=== PATIENT | female | born 1965 | race Caucasian/White ===

== ENCOUNTER 2017-07-11 02:06 | Emergency (ER) | payer OTHER ==
[~2017-07-11 02:06] MED LIST: EMTRICITABINE/TENOFOVIR 200MG/300MG TAB PO SCH; RALTEGRAVIR 400 MG TAB PO SCH
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
[2017-07-11 02:52] VITALS: BP 132/74; PULSE 76; RESP 16; TEMP 98.1; O2SAT 97
[2017-07-11] MEDS ORDERED: CEFTRIAXONE IM 350 MG/ML SYRINGE IM ONE (03:12)
[2017-07-11] MEDS ORDERED: IBUPROFEN 600 MG TAB PO ONE (03:12)
[2017-07-11] MEDS ORDERED: RALTEGRAVIR 400 MG TAB PO ONE (03:56)
[2017-07-11] MEDS ORDERED: EMTRICITABINE/TENOFOVIR 200MG/300MG TAB PO ONE (03:56)
[2017-07-11] MEDS ORDERED: ONDANSETRON DISINTEGRATING 4 MG TAB PO ONE (04:01)
[2017-07-11] MEDS ORDERED: AZITHROMYCIN 250 MG TAB PO ONE (04:27)
== END 2017-07-11 05:10 | disposition home or self-care (01) ==
LOC: EEVIPCON 02:06
DX: T74.21XA Adult sexual abuse, confirmed, initial encounter (principal); Y07.9 Unspecified perpetrator of maltreatment and neglect
CPT/HCPCS: J0696